=== PATIENT | female | born 1960 | race Caucasian/White ===

== ENCOUNTER → 2021-11-10 | Outpatient (CLI) | payer MEDICARE ==
--- NOTE | 2021-11-10 17:03 | XR ---
EXAMINATION TYPE: XR abdomen 2V DATE OF EXAM: 11/10/2021 CLINICAL DATA: 61 year-old female K59.09, constipation, PHH COMPARISON: None FINDINGS: Lung bases are clear. No evidence for free intraperitoneal air. Nondilated small bowel or air-fluid levels. No suspicious calcifications are seen. Rounded density in the right side of the pelvis likely a phleb olith. There is moderate stool in the ascending colon. No significant stool seen along the left side of the colon or pelvis. IMPRESSION: Moderate stool in the right side of the colon. No significant stool in the left side of the colon or pelvis. No evidence for bowel obstruction.
== END | disposition home or self-care (01) ==
LOC: RADXRMAIN 14:15
PROVIDERS: ATTEND Nurse Practitioner Family
DX: K56.41 Fecal impaction (principal)
CPT/HCPCS: 74019

== ENCOUNTER 2021-11-25 09:57 | Day surgery (SDC) | payer MEDICARE ==
[2021-11-19 13:23] VITALS: BMI 41.3
[~2021-11-25 09:57] MED LIST: LACTATED RINGERS 1,000 ML IV SCH; LIDOCAINE 1% (10MG/ML) FOR IV START INTRADERMA PRN
[2021-11-25 10:48] VITALS: TEMP 97.4
[2021-11-25] MEDS ORDERED: ONDANSETRON 4 MG/2 ML VIAL ONE (11:13)
[2021-11-25] MEDS ORDERED: ONDANSETRON 4 MG/2 ML VIAL IVP ONE (11:15)
[2021-11-25] MEDS ORDERED: LIDOCAINE 1% INJ 10MG/ML (20 ML MDV) ONE (11:42)
[2021-11-25] MEDS ORDERED: PROPOFOL 10 MG/ML 20 ML VIAL IV ONE (11:42)
--- NOTE | 2021-11-25 11:57 | P.PCN ---
Date of Procedure: 11/25/21 Procedure(s) Performed: BRIEF HISTORY: Patient is a 61-year-old pleasant white female scheduled for an elective colonoscopy as a part of screening for colorectal neoplasia. PROCEDURE PERFORMED: Colonoscopy with biopsy. PREOPERATIVE DIAGNOSIS: Screening for colon cancer. IV sedation per Anesthesia. PROCEDURE: After informed consent was obtained, the patient, was brought into the endoscopy unit. IV sedation was administered by Anesthesia under continuous monitoring. Digital rectal examination was normal. Initially the Olympus CF-160 flexible video colonoscope was then inserted in the rectum, gradually advanced into the cecum without any difficulty. Careful examination was performed as the scope was gradually being withdrawn. Ileocecal valve and the appendiceal orifice were visualized and appeared normal. Prep was excellent. Mucosa of the cecum, appeared normal. In the ascending colon there was a 3 mm polyp that was removed by cold biopsy.Rest of the ascending colon, transverse colon, descending colon, sigmoid colon, and rectum appeared normal. Scattered sigmoid diverticulosis seen. Retroflexion was performed in the rectum and no lesions were seen. The patient tolerated the procedure well. IMPRESSION: 3 mm ascending colon polyp status post cold biopsy Scattered sigmoid diverticulosis RECOMMENDATIONS: Findings of this examination were discussed with the patient well as her family. She was advised to follow with the biopsy results. If the biopsy reveals adenoma she can have a repeat colonoscopy in 5.
[2021-11-25 12:16] VITALS: BP 106/74; PULSE 70; RESP 16
== END 2021-11-25 12:54 | disposition home or self-care (01) ==
LOC: ORWHC2ENDO 09:57
PROVIDERS: ATTEND Internal Medicine Gastroenterology
DX: Z12.11 Encounter for screening for malignant neoplasm of colon (principal); D12.2 Benign neoplasm of ascending colon; K57.30 Diverticulosis of large intestine without perforation or abscess without bleeding
CPT/HCPCS: 45380; J2405; J2001; J2704; 88305

== ENCOUNTER → 2022-01-05 | Outpatient (CLI) | payer MEDICARE ==
[2022-01-05 09:21] LABS: Creatinine,Urine Random 61.4 mg/dL; Protein/Creatinine Ratio,Urine 0.195
[2022-01-05 14:54] LABS: African American GFR (CKD) 94.2 (60.0-200.0); BUN/Creat Ratio 11.07 Ratio (12.00-20.00); Blood Urea Nitrogen 8.8 mg/dL (9.0-27.0); Calcium 8.9 mg/dL (8.7-10.3); Carbon Dioxide 25.1 mmol/L (20.0-27.5); Non-African American GFR(CKD) 81.2 (60.0-200.0); Potassium 3.6 mmol/L (3.5-5.5)
[2022-01-05 15:38] LABS: Appearance,Urine Clear (Clear); Bilirubin,Urine Negative (Negative); Blood,Urine Negative (Negative); Color,Urine Yellow (Yellow); Ketones,Urine Negative (Negative); Leukocyte Esterase,Urine Negative (Negative); Nitrite,Urine Negative (Negative); Protein,Urine Negative (Negative); Urobilinogen,Urine 0.2 E.U./DL (0.0-1.0)
== END | disposition home or self-care (01) ==
LOC: LABWHC1 07:44
PROVIDERS: ATTEND Internal Medicine
DX: Z51.81 Encounter for therapeutic drug level monitoring (principal); M35.02 Sjogren syndrome with lung involvement; R79.89 Other specified abnormal findings of blood chemistry
CPT/HCPCS: 36415; 80048; 81003; 82570; 84156

== ENCOUNTER → 2022-02-03 | Outpatient (CLI) | payer MEDICARE ==
--- NOTE | 2022-02-03 12:17 | BD ---
EXAMINATION TYPE: Axial Bone Density DATE OF EXAM: 02/03/2022 COMPARISON: NONE CLINICAL HISTORY: Height: 5 FT 1 1/2 IN Weight: 222 FRAX RISK QUESTIONS: Alcohol (3 or more units per day): NO Family History (Parent hip fracture): YES Glucocorticoids (More than 3mos): NO (Ex: prednisone, prednisolone, methylprednisolone, dexamethasone, and hydrocortisone). History of Fracture in Adulthood: YES Secondary Osteoporosis: 1. Type 1 Diabetes: NO 2. Hyperthyroidism: NO 3. Menopause before 45: NO 4. Malnutrition: NO 5. Chronic liver disease: NO Rheumatoid Arthritis: NO Current Tobacco Use: NO RISK FACTORS HISTORY OF: Surgery to Spine/Hip(right/left)/Wrist (right/left): NO Family History of Osteoporosis: YES Active: YES Diet low in dairy products/other sources of calcium: NO Postmenopausal woman: YES Take estrogen and/or progesterone medications: NONE Lost more than 2 inches in height since high school: NO Frequent falls: NO Poor Health: FAIR Hyperparathyroidism: NO Adrenal Insufficiency: NO MEDICATIONS: Additional Medications: CELLCEPT, SINGULAIR, PEPCID, WELLBUTRIN Additional History: PT HAS PULMONARY FIBROSIS EXAM MEASUREMENTS: Bone mineral densitometry was performed using the [employer]. Bone mineral density as measured about the Lumbar spine is: ----- L1-L4(G/cm2): 1.418 T Score Values are as follows: ----- L2: 2.3 ----- L3: 2.3 ----- L4: 1.3 ----- L1-L4: 2.0 PREV DONE ELSEWHERE Bone mineral density about the R hip (g/cm2): 0.910 Bone mineral density about the L hip (g/cm2): 0.818 T Score values are as follows: -----R Neck: -0.9 -----L Neck: -1.6 -----R Total: -0.3 -----L Total: -0.6 PREV DONE ELSEWHERE IMPRESSION: No evidence for osteoporosis or osteopenia NOTE: T-SCORE=SD OF THE YOUNG ADULT MEAN.
--- NOTE | 2022-02-03 14:32 | MM ---
Reason for exam: screening (asymptomatic). Last mammogram was performed 2 years and 5 months ago. History: Patient is postmenopausal and is nulliparous. Family history of breast cancer in paternal aunt. Physical Findings: A clinical breast exam by your physician is recommended on an annual basis and results should be correlated with mammographic findings. MG 3D Screening Mammo W/Cad Bilateral CC and MLO view(s) were taken. Prior study comparison: September 05, 2019, mammogram, performed at [facility]. The breast tissue is heterogeneously dense. This may lower the sensitivity of mammography. Stable benign calcifications. There is no discrete abnormality. No significant changes when compared with prior studies. ASSESSMENT: Benign, BI-RAD 2 RECOMMENDATION: Routine screening mammogram of both breasts in 1 year.
== END | disposition home or self-care (01) ==
LOC: RADMAMWWP 09:04
PROVIDERS: ATTEND Family Medicine
DX: Z12.31 Encounter for screening mammogram for malignant neoplasm of breast (principal); Z78.0 Asymptomatic menopausal state; Z80.3 Family history of malignant neoplasm of breast
CPT/HCPCS: 77063; 77067; 77080

== ENCOUNTER → 2022-04-28 | Outpatient (CLI) | payer MEDICARE ==
[2022-04-28 18:17] LABS: Basophils # (A) 0.06 X 10*3/uL (0.00-0.10); Basophils % (A) 0.9 %; Eosinophils # (A) 0.17 X 10*3/uL (0.04-0.35); Eosinophils % (A) 2.6 %; HCT 36.7 % (37.2-46.3); HGB 11.3 g/dL (12.0-15.0); Immature Grans, Automated 0.3 %; Lymphocytes # (A) 1.76 X 10*3/uL (0.90-5.00); MCH 27.3 pg (27.0-32.0); MCHC 30.8 g/dL (32.0-37.0); MCV 88.6 fL (80.0-97.0); Mean Platelet Volume 9.3 fL (9.5-12.2); Monocytes # (A) 0.48 X 10*3/uL (0.20-1.00); Monocytes % (A) 7.4 %; NRBC Per 100 WBC 0 /100 WBCS (0.0-0.0); Neutrophils # (A) 4.04 X 10*3/uL (1.80-7.70); Neutrophils % (A) 61.8 %; Platelet Count 360 X 10*3/uL (140-440); RBC 4.14 X 10*6/uL (4.10-5.20); RDW 11.9 % (11.5-14.5); WBC 6.53 X 10*3/uL (4.50-10.00)
[2022-04-28 18:19] LABS: African American GFR (CKD) 75.3 (60.0-200.0); Non-African American GFR(CKD) 64.9 (60.0-200.0)
== END | disposition home or self-care (01) ==
LOC: LABWHC1 14:07 → EDSTATUS 14:09
PROVIDERS: ATTEND Internal Medicine
DX: Z51.81 Encounter for therapeutic drug level monitoring (principal); M65.9 Synovitis and tenosynovitis, unspecified; J84.9 Interstitial pulmonary disease, unspecified
CPT/HCPCS: 36415; 82565; 85025

== ENCOUNTER → 2022-07-09 | Outpatient (CLI) | payer MEDICARE ==
[2022-07-09 13:39] LABS: Creatinine,Urine Random 87.3 mg/dL; Protein/Creatinine Ratio,Urine 0.057
[2022-07-09 18:20] LABS: African American GFR (CKD) 73.4 (60.0-200.0); Albumin 4.6 g/dL (3.8-4.9); Albumin/Globulin Ratio 1.66 (1.60-3.17); Anion Gap 8.9 mmol/L (10.00-18.00); BUN/Creat Ratio 17.18 Ratio (12.00-20.00); Blood Urea Nitrogen 16.6 mg/dL (9.0-27.0); Calcium 9.4 mg/dL (8.7-10.3); Carbon Dioxide 27.4 mmol/L (20.0-27.5); Globulin 2.7 g/dL (1.6-3.3); Non-African American GFR(CKD) 63.4 (60.0-200.0); Potassium 3.8 mmol/L (3.5-5.5); Total Bilirubin 0.7 mg/dL (0.30-1.20); Total Protein 7.3 g/dL (6.2-8.2)
[2022-07-09 23:50] LABS: Appearance,Urine Clear (Clear); Bilirubin,Urine Negative (Negative); Blood,Urine Negative (Negative); Color,Urine Yellow (Yellow); Ketones,Urine Negative (Negative); Nitrite,Urine Negative (Negative); Specific Gravity,Urine 1.017 (1.001-1.030); Urobilinogen,Urine 0.2 (0.2,1.0)
[2022-07-09 23:57] LABS: Bacteria,Urine None Seen /HPF (None Seen)
== END | disposition home or self-care (01) ==
LOC: LABWHC1 12:47
PROVIDERS: ATTEND Internal Medicine
DX: Z51.81 Encounter for therapeutic drug level monitoring (principal); M35.02 Sjogren syndrome with lung involvement
CPT/HCPCS: 36415; 80053; 81001; 82570; 84156

== ENCOUNTER → 2023-03-21 | Outpatient (CLI) | payer MEDICARE ==
--- NOTE | 2023-03-22 07:34 | MM ---
Reason for Exam: Screening (asymptomatic). Last mammogram was performed 1 year(s) and 1 month(s) ago. Patient History: Menarche at age 13. Patient has no children. Postmenopausal. Paternal aunt had breast cancer. Risk Values: Adali 5 year model risk: 1.6%. NCI Lifetime model risk: 7.9%. Prior Study Comparison: 09/05/2019 Screening Mammogram, [facility]. 02/03/2022 Bilateral Screening Mammogram, [facility]. Tissue Density: There are scattered fibroglandular densities. Findings: Analyzed By CAD. There is no suspicious group of microcalcifications or new suspicious mass in either breast. Overall Assessment: Negative, BI-RAD 1 Management: Screening Mammogram of both breasts in 1 year. A clinical breast exam by your physician is recommended on an annual basis and results should be correlated with mammographic findings. Electronically signed and approved by: Willie Cotto M.D. Radiologis
== END | disposition home or self-care (01) ==
LOC: RADMAMWWP 09:01
PROVIDERS: ATTEND Family Medicine
DX: Z12.31 Encounter for screening mammogram for malignant neoplasm of breast (principal); Z78.0 Asymptomatic menopausal state; Z80.3 Family history of malignant neoplasm of breast
CPT/HCPCS: 77063; 77067

== ENCOUNTER → 2024-01-13 | Outpatient (CLI) | payer MEDICARE ==
[2024-01-14 03:26] LABS: C Reactive Protein <0.30 mg/dL (0.00-0.80)
[2024-01-14 04:27] LABS: ALT 13 U/L (8-44); AST 26 U/L (13-35); Albumin 4.3 g/dL (3.8-4.9); Albumin/Globulin Ratio 1.79 Ratio (1.60-3.17); Alkaline Phosphatase 65 U/L (41-126); Blood Urea Nitrogen 20.3 mg/dL (9.0-27.0); Calcium 6.4 mg/dL (8.7-10.3); Carbon Dioxide 23.9 mmol/L (21.6-31.8); Chloride 100 mmol/L (96-109); Globulin 2.4 g/dL (1.6-3.3); Glucose 94 mg/dL (70-110); Potassium 6.9 mmol/L (3.5-5.5); Sodium 139 mmol/L (135-145); Total Bilirubin 0.6 mg/dL (0.3-1.2); Total Protein 6.7 g/dL (6.2-8.2)
== END | disposition home or self-care (01) ==
LOC: LABWHC1 14:55
PROVIDERS: ATTEND Internal Medicine
DX: Z51.81 Encounter for therapeutic drug level monitoring (principal); J84.9 Interstitial pulmonary disease, unspecified; M35.02 Sjogren syndrome with lung involvement; Z79.899 Other long term (current) drug therapy
CPT/HCPCS: 36415; 80053; 85025; 85652; 86140; 86160

== ENCOUNTER 2024-01-14 09:31 | Emergency (ER) | payer MEDICARE ==
--- NOTE | 2024-01-14 10:15 | ED ---
General Adult HPI - General Chief complaint: Recheck/Abnormal Lab/Rx Stated complaint: abn labs Time Seen by Provider: 01/14/24 09:44 Source: patient, RN notes reviewed Limitations: no limitations - History of Present Illness Initial comments: Patient is a pleasant 63-year-old female presenting to the emergency department with concerns for abnormal labs. Patient did have lab work done routinely yesterday. Patient was told her potassium was high and calcium was low. Patient was advised to come to the emergency department to have this rechecked. Patient is otherwise symptom-free. Patient does have labs checked around every 12 weeks. - Related Data Home Medications Medication Instructions Recorded Confirmed Cetirizine HCl [Zyrtec] 10 mg PO DAILY 11/19/21 11/19/21 Famotidine [Pepcid] 40 mg PO DAILY 11/19/21 11/19/21 Montelukast [Singulair] 10 mg PO DAILY 11/19/21 11/19/21 buPROPion SR [Wellbutrin SR] 150 mg PO DAILY 11/19/21 11/19/21 hydroCHLOROthiazide [Hydrodiuril] 25 mg PO DAILY 11/19/21 11/19/21 mycophenolate mofetiL [Cellcept] 1,000 mg PO BID 11/19/21 11/19/21 Allergies Allergy/AdvReac Type Severity Reaction Status Date / Time No Known Allergies Allergy Verified 01/14/24 09:43 Review of Systems ROS Statement: Those systems with pertinent positive or pertinent negative responses have been documented in the HPI. ROS Other: All systems not noted in ROS Statement are negative. Constitutional: Denies: fever Eyes: Denies: eye pain ENT: Denies: ear pain Respiratory: Denies: dyspnea Cardiovascular: Denies: palpitations Musculoskeletal: Denies: back pain, myalgia Neurological: Denies: weakness Past Medical History Past Medical History: Respiratory Disorder History of Any Multi-Drug Resistant Organisms: None Reported Past Surgical History: No Surgical Hx Reported Smoking Status: Never smoker Past Alcohol Use History: None Reported Past Drug Use History: None Reported General Exam Limitations: no limitations General appearance: alert, in no apparent distress Head exam: Present: normocephalic Eye exam: Present: normal appearance Neck exam: Present: normal inspection Respiratory exam: Present: normal lung sounds bilaterally Cardiovascular Exam: Present: regular rate, normal rhythm GI/Abdominal exam: Present: soft. Absent: tenderness Extremities exam: Present: normal inspection, full ROM. Absent: tenderness Neurological exam: Present: alert. Absent: motor sensory deficit Psychiatric exam: Present: normal affect, normal mood Skin exam: Present: normal color Course Vital Signs 01/14/24 01/14/24 09:39 10:58 Pulse Rate 60 52 L Respiratory 18 18 Rate Blood Pressure 128/77 110/71 O2 Sat by Pulse 98 98 Oximetry EKG Findings - EKG Results: EKG: interpreted by PEGGYD (Low QRS voltage.), sinus rhythm, normal ST/T EKG shows: bradycardia Medical Decision Making - Medical Decision Making Was pt. sent in by a medical professional or institution (, PA, MAINTENANCE CARPENTER, urgent care, hospital, or halfway...) When possible be specific @ -No Did you speak to anyone other than the patient for history (EMS, parent, family, police, friend...)? What history was obtained from this source @ -No Did you review nursing and triage notes (agree or disagree)? Why? @ -I reviewed and agree with nursing and triage notes Were old charts reviewed (outside hosp., previous admission, EMS record, old EKG, old radiological studies, urgent care reports/EKG's, halfway records)? Report findings @ -Previous labs reviewed, specifically potassium and calcium levels Differential Diagnosis (chest pain, altered mental status, abdominal pain women, abdominal pain men, vaginal bleeding, weakness, fever, dyspnea, syncope, headache, dizziness, GI bleed, back pain, seizure, CVA, palpatations, mental health, musculoskeletal)? @ -Differential Weakness: Hypoglycemia, shock, sepsis, hyponatremia, anemia, infection, [place], ETOH, adverse medicine reaction, overdose, stroke, this is not meant to be an all-inclusive list. EKG interpreted by me (3pts min.). @ -As above X-rays interpreted by me (1pt min.). @ -None done CT interpreted by me (1pt min.). @ -None done U/S interpreted by me (1pt. min.). @ -None done What testing was considered but not performed or refused? (CT, X-rays, U/S, labs)? Why? @ -None What meds were considered but not given or refused? Why? @ -None Did you discuss the management of the patient with other professionals (professionals i.e. , PA, MAINTENANCE CARPENTER, lab, RT, psych nurse, social media assistant, switching clerk, teacher, sales and service officer, bottle caser)? Give summary @ -No Was smoking cessation discussed for >3mins.? @ -No Was critical care preformed (if so, how long)? @ -No Were there social determinants of health that impacted care today? How? (Homelessness, low income, unemployed, alcoholism, drug addiction, transportation, low edu. Level, literacy, decrease access to med. care, detention, rehab)? @ -No Was there de-escalation of care discussed even if they declined (Discuss DNR or withdrawal of care, Hospice)? DNR status @ -No What co-morbidities impacted this encounter? (DM, HTN, Smoking, COPD, CAD, Cancer, CVA, ARF, Chemo, Hep., AIDS, mental health diagnosis, sleep apnea, morbid obesity)? @ -None Was patient admitted / discharged? Hospital course, mention meds given and route, prescriptions, significant lab abnormalities, going to OR and other pertinent info. @ -Patient presents with concerns for abnormal labs. Redraw today shows normal levels and patient will be discharged for follow-up with her primary care physician Undiagnosed new problem with uncertain prognosis? @ -No Drug Therapy requiring intensive monitoring for toxicity (Heparin, Nitro, Insulin, Cardizem)? @ -No Were any procedures done? @ -No Diagnosis/symptom? @ -Lab abnormality Acute, or Chronic, or Acute on Chronic? @ -Acute Uncomplicated (without systemic symptoms) or Complicated (systemic symptoms)? @ -Default Side effects of treatment? @ -No Exacerbation, Progression, or Severe Exacerbation? @ -No Poses a threat to life or bodily function? How? (Chest pain, [place], [place], pneumonia, PE, COPD, DKA, ARF, appy, cholecystitis, CVA, Diverticulitis, Homicidal, Suicidal, threat to staff... and all critical care pts) @ -No - Lab Data Result diagrams: 01/14/24 09:52 01/14/24 09:52 Lab Results 01/14/24 01/14/24 01/14/24 Range/Units 09:52 09:52 09:52 WBC 4.4 (3.8-10.6) k/uL RBC 4.09 (3.80-5.40) m/uL Hgb 11.5 (11.4-16.0) gm/dL Hct 35.6 (34.0-46.0) % MCV 87.0 (80.0-100.0) fL MCH 28.2 (25.0-35.0) pg MCHC 32.4 (31.0-37.0) g/dL RDW 12.4 (11.5-15.5) % Plt Count 257 (150-450) k/uL MPV 6.9 Neutrophils % 45 % Lymphocytes % 39 % Monocytes % 5 % Eosinophils % 6 % Basophils % 1 % Neutrophils # 2.0 (1.3-7.7) k/uL Lymphocytes # 1.7 (1.0-4.8) k/uL Monocytes # 0.2 (0-1.0) k/uL Eosinophils # 0.3 (0-0.7) k/uL Basophils # 0.0 (0-0.2) k/uL Sodium 137 (137-145) mmol/L Potassium 3.7 (3.5-5.1) mmol/L Chloride 102 (98-107) mmol/L Carbon Dioxide 31 H (22-30) mmol/L Anion Gap 4 mmol/L BUN 21 H (7-17) mg/dL Creatinine 0.97 (0.52-1.04) mg/dL Est GFR (CKD-EPI)AfAm 73 (>60 ml/min/1.73 sqM) Est GFR (CKD-EPI)NonAf 63 (>60 ml/min/1.73 sqM) Glucose 96 (74-99) mg/dL Calcium 8.9 (8.4-10.2) mg/dL Ionized Calcium Sara 4.7 (4.5-5.3) mg/dL Magnesium 2.2 (1.6-2.3) mg/dL Total Bilirubin 0.8 (0.2-1.3) mg/dL AST 27 (14-36) U/L ALT 13 (4-34) U/L Alkaline Phosphatase 79 (38-126) U/L Total Protein 6.3 (6.3-8.2) g/dL Albumin 3.7 (3.5-5.0) g/dL Disposition Clinical Impression: Abnormal laboratory test result Disposition: HOME SELF-CARE Condition: Stable Additional Instructions: Please do follow-up with your primary care physician in the next day or 2 for recheck. Return for muscle weakness, increased heart rate, worsening or changing symptoms or other concerns. Is patient prescribed a controlled substance at d/c from ED?: No Referrals: Joanna Kay DO [Primary Care Provider] - 1-2 days Time of Disposition: 11:40
[2024-01-14 10:32] LABS: Basophils % (A) 1 %; Eosinophils # (A) 0.3 k/uL (0-0.7); Eosinophils % (A) 6 %; HCT 35.6 % (34.0-46.0); HGB 11.5 gm/dL (11.4-16.0); Lymphocytes # (A) 1.7 k/uL (1.0-4.8); Lymphocytes % (A) 39 %; MCH 28.2 pg (25.0-35.0); MCHC 32.4 g/dL (31.0-37.0); Mean Platelet Volume 6.9; Monocytes # (A) 0.2 k/uL (0-1.0); Monocytes % (A) 5 %; Neutrophils % (A) 45 %; Platelet Count 257 k/uL (150-450); RBC 4.09 m/uL (3.80-5.40); RDW 12.4 % (11.5-15.5); WBC 4.4 k/uL (3.8-10.6)
[2024-01-14 10:52] LABS: Potassium 3.7 mmol/L (3.5-5.1)
[2024-01-14 10:53] LABS: ALT 13 U/L (4-34); AST 27 U/L (14-36); African American GFR (CKD) 73 (>60 ml/min/1.73 sqM); Albumin 3.7 g/dL (3.5-5.0); Alkaline Phosphatase 79 U/L (38-126); Anion Gap 4 mmol/L; Blood Urea Nitrogen 21 mg/dL (7-17); Calcium 8.9 mg/dL (8.4-10.2); Carbon Dioxide 31 mmol/L (22-30); Chloride 102 mmol/L (98-107); Glucose 96 mg/dL (74-99); Magnesium 2.2 mg/dL (1.6-2.3); Non-African American GFR(CKD) 63 (>60 ml/min/1.73 sqM); Sodium 137 mmol/L (137-145); Total Bilirubin 0.8 mg/dL (0.2-1.3); Total Protein 6.3 g/dL (6.3-8.2)
[2024-01-14 11:58] VITALS: BP 125/73; PULSE 55; RESP 16
== END 2024-01-14 11:56 | disposition home or self-care (01) ==
LOC: EC 09:31
DX: R79.9 Abnormal finding of blood chemistry, unspecified (principal); I25.2 Old myocardial infarction
CPT/HCPCS: 36415; 80053; 82330; 83735; 85025; 99284

== ENCOUNTER → 2024-03-28 | Outpatient (CLI) | payer MEDICARE ==
--- NOTE | 2024-03-29 11:56 | BD ---
EXAMINATION TYPE: Axial Bone Density DATE OF EXAM: 03/28/2024 CLINICAL HISTORY: 63 years old Female. ICD-10 CODE: Z78.0 ASYMPTOMATIC MENOPAUSAL STATE Height: 5 ft Weight: 216 FRAX RISK QUESTIONS: Alcohol (3 or more units per day): no Family History (Parent hip fracture): yes Glucocorticoids (More than 3mos): no (Ex: prednisone, prednisolone, methylprednisolone, dexamethasone, and hydrocortisone). History of Fracture in Adulthood: yes Secondary Osteoporosis: 1. Type 1 Diabetes: no 2. Hyperthyroidism: no 3. Menopause before 45: yes 4. Malnutrition: no 5. Chronic liver disease: no Rheumatoid Arthritis: no Current Tobacco Use: no RISK FACTORS HISTORY OF: Surgery to Spine/Hip(right/left)/Wrist (right/left): no MEDICATIONS: Thyroid Medications: none Osteoporosis Medications: none EXAM MEASUREMENTS: Bone mineral densitometry was performed using the [employer] System. Bone mineral density as measured about the Lumbar spine is: ----- L1-L4(G/cm2): 1.454 T Score Values are as follows: ----- L1: 2.7 ----- L2: 2.6 ----- L3: 2.2 ----- L4: 1.6 ----- L1-L4: 2.3 Z Score Values are as follows: ----- L1: 3.0 ----- L2: 2.9 ----- L3: 2.6 ----- L4: 1.9 ----- L1-L4: 2.6 Bone mineral density has: increased 2.5 % since study of: 2021 Bone mineral density about the R hip (g/cm2): 0.878 Bone mineral density about the L hip (g/cm2): 0.778 T Score values are as follows: -----R Neck: -1.1 -----L Neck: -1.9 -----R Total: -0.5 -----L Total: -1.0 Z Score values are as follows: -----R Neck: -0.5 -----L Neck: -1.2 -----R Total: -0.3 -----L Total: -0.7 Bone mineral density has: decreased -4.6 % since study of: 2021 FRAX%s: The graph provided illustrates a 16.5 % chance for a major osteoporotic fx and a 1.0 % chance for the hips probability for fx in 10 years time. IMPRESSION: Osteopenia (T Score between -2.5 and -1). There is slightly increased risk of fracture and the patient may be considered for treatment. Re-Screen 2-5 years. NOTE: T-SCORE=SD OF THE YOUNG ADULT MEAN.
--- NOTE | 2024-03-29 17:43 | MM ---
Reason for Exam: Screening (asymptomatic). Last mammogram was performed 1 year(s) and 1 month(s) ago. Patient History: Menarche at age 13. Patient has no children. Postmenopausal. Paternal aunt had breast cancer. Risk Values: Adali 5 year model risk: 1.7%. NCI Lifetime model risk: 7.7%. Prior Study Comparison: 09/05/2019 Screening Mammogram, [facility]. 02/03/2022 Bilateral Screening Mammogram, [facility]. 03/21/2023 Bilateral MG 3D screening mammo w/cad, [facility]. Tissue Density: There are scattered areas of fibroglandular density. Findings: Analyzed By CAD. The pattern is symmetrical. No significant interval change is evident. Scattered benign calcifications are present.No suspicious groups of microcalcifications, spiculated or lobular masses, architectural distortion or other secondary signs of malignancy are mammographically apparent. Overall Assessment: Benign, BI-RAD 2 Management: Screening Mammogram of both breasts in 1 year. A negative mammogram report should not preclude additional follow up of suspicious palpable abnormalities. Patient should continue monthly self breast exam. A clinical breast exam by your physician is recommended on an annual basis and results should be correlated with mammographic findings. Note on Adali scores and lifetime risk: 1. A Adali score greater than 3% is considered moderate risk. If this is the case, consider specialist referral to assess eligibility for a risk reducing agent. 2. If overall lifetime risk for the development of breast cancer is 20% or higher, the patient may qualify for future screening with alternating mammogram and breast MRI. Electronically signed and approved by: Andres Lebron D.O. Radiologis
== END | disposition home or self-care (01) ==
LOC: RADBDWWP 09:48
PROVIDERS: ATTEND Family Medicine
DX: Z12.31 Encounter for screening mammogram for malignant neoplasm of breast (principal); M85.851 Other specified disorders of bone density and structure, right thigh; Z78.0 Asymptomatic menopausal state; Z80.3 Family history of malignant neoplasm of breast
CPT/HCPCS: 77063; 77067; 77080